=== PATIENT | male | born 1960 | race Caucasian/White ===

== ENCOUNTER → 2021-03-13 | Outpatient (CLI) | payer OTHER ==
[~2021-03-13] MED LIST: CENTRUM SILVER1 EAC2 PO; Flonase 0.05% N16 GM; Monodox100 MG PO
[2021-03-13 17:55] LABS: BASOPHILS ABSOLUTE AUTO 0.02 K/mm3 (0.00-0.23); BASOPHILS PERCENT AUTO 1 % (0-2); EOSINOPHILS PERCENT AUTO 0 % (0-6); Hematocrit 44.5 % (37.0-53.0); Hemoglobin 15.6 g/dL (13.5-17.5); IMMATURE GRAN ABSOLUTE AUTO 0.01 K/mm3 (0.00-0.10); IMMATURE GRAN PERCENT AUTO 0 % (0-1); LYMPHOCYTES ABSOLUTE AUTO 0.95 K/mm3 (0.84-5.20); LYMPHOCYTES PERCENT AUTO 23 % (21-46); MONOCYTES ABSOLUTE AUTO 0.17 K/mm3 (0.16-1.47); MONOCYTES PERCENT AUTO 4 % (4-13); Mean Corpuscular HGB 31.3 pg (26.0-34.0); Mean Corpuscular HGB Conc 35.1 g/dL (31.5-36.5); Mean Corpuscular Volume 89 fL (80-100); Mean Platelet Volume 9.8 fL (9.1-12.4); NEUTROPHILS ABSOLUTE AUTO 3.01 K/mm3 (1.96-9.15); NEUTROPHILS PERCENT AUTO 72 % (41-73); Platelet Count 115 K/mm3 (150-400); RDW Coefficient Variation 12.1 % (11.7-14.2); RDW Standard Deviation 39.5 fL (35.1-46.3); Red Blood Cell Count 4.99 M/mm3 (4.30-5.90); White Blood Cell Count 4.16 K/mm3 (4.00-11.30)
[2021-03-13 18:05] LABS: Albumin, Blood 3.5 g/dL (3.4-5.0); Albumin/Globulin Ratio 0.9 (0.8-1.8); Bilirubin, Total 0.4 mg/dL (0.1-1.0); Bun/Creatinine Ratio 15.2 (12.0-20.0); Calcium, Blood 7.6 mg/dL (8.5-10.1); Creatinine, Blood 1.64 mg/dL (0.60-1.20); Potassium, Blood 4.6 mmol/L (3.5-5.5); Total Protein, Blood 7.5 g/dL (6.4-8.2)
== END | disposition home or self-care (01) ==
LOC: LAB 17:49 → LAB SHORT 17:49
PROVIDERS: Family Medicine
DX: E86.0 Dehydration (principal)
CPT/HCPCS: 80053; 85025; 85379

== ENCOUNTER → 2021-03-14 | Outpatient (CLI) | payer OTHER ==
[2021-03-14 11:20] LABS: Albumin, Blood 3.2 g/dL (3.4-5.0); Albumin/Globulin Ratio 0.8 (0.8-1.8); Bilirubin, Total 0.4 mg/dL (0.1-1.0); Bun/Creatinine Ratio 23.5 (12.0-20.0); Calcium, Blood 7.8 mg/dL (8.5-10.1); Creatinine, Blood 1.53 mg/dL (0.60-1.20); Potassium, Blood 4.8 mmol/L (3.5-5.5); Total Protein, Blood 7.2 g/dL (6.4-8.2)
== END | disposition home or self-care (01) ==
LOC: LAB SHORT 11:05
PROVIDERS: Physician Assistant
DX: U07.1 COVID-19 (principal); J12.82 Pneumonia due to coronavirus disease 2019
CPT/HCPCS: 80053; 85379

== ENCOUNTER → 2021-03-15 | Outpatient (CLI) | payer OTHER ==
[2021-03-15 11:31] LABS: Albumin/Globulin Ratio 0.8 (0.8-1.8); Bilirubin, Total 0.3 mg/dL (0.1-1.0); Bun/Creatinine Ratio 25.4 (12.0-20.0); Calcium, Blood 7.8 mg/dL (8.5-10.1); Creatinine, Blood 1.34 mg/dL (0.60-1.20); Globulin, Blood 3.6 g/dL (2.2-4.0); Potassium, Blood 4.8 mmol/L (3.5-5.5); Total Protein, Blood 6.6 g/dL (6.4-8.2)
== END | disposition home or self-care (01) ==
LOC: LAB 11:15 → LAB SHORT 11:15
PROVIDERS: Family Medicine
DX: R09.02 Hypoxemia (principal)
CPT/HCPCS: 80053

== ENCOUNTER 2021-03-16 19:04 | Inpatient (IN) | payer OTHER ==
[~2021-03-16] VITALS: Ht 177.8 cm; Wt 96.7 kg
[~2021-03-16 19:04] MED LIST changes: -CENTRUM SILVER1 EAC2 PO
[2021-03-16] MEDS ORDERED: CENTRUM SILVER1 EAC2 PO (19:14)
[2021-03-16 19:32] LABS: BASOPHILS ABSOLUTE AUTO 0.01 K/mm3 (0.00-0.23); BASOPHILS PERCENT AUTO 0 % (0-2); EOSINOPHILS PERCENT AUTO 0 % (0-6); Hematocrit 42.3 % (37.0-53.0); IMMATURE GRAN ABSOLUTE AUTO 0.04 K/mm3 (0.00-0.10); IMMATURE GRAN PERCENT AUTO 1 % (0-1); LYMPHOCYTES ABSOLUTE AUTO 0.49 K/mm3 (0.84-5.20); LYMPHOCYTES PERCENT AUTO 8 % (21-46); MONOCYTES ABSOLUTE AUTO 0.19 K/mm3 (0.16-1.47); MONOCYTES PERCENT AUTO 3 % (4-13); Mean Corpuscular HGB 30.8 pg (26.0-34.0); Mean Corpuscular HGB Conc 35.5 g/dL (31.5-36.5); Mean Corpuscular Volume 87 fL (80-100); Mean Platelet Volume 9.8 fL (9.1-12.4); NEUTROPHILS ABSOLUTE AUTO 5.79 K/mm3 (1.96-9.15); NEUTROPHILS PERCENT AUTO 89 % (41-73); Platelet Count 167 K/mm3 (150-400); RDW Coefficient Variation 11.7 % (11.7-14.2); RDW Standard Deviation 37.5 fL (35.1-46.3); Red Blood Cell Count 4.87 M/mm3 (4.30-5.90); White Blood Cell Count 6.52 K/mm3 (4.00-11.30)
[2021-03-16 19:46] LABS: Alanine Aminotransfer (ALT/SGP 31 U/L (12-78); Albumin, Blood 2.5 g/dL (3.4-5.0); Albumin/Globulin Ratio 0.6 (0.8-1.8); Alk Phos 68 U/L (50-136); Anion Gap 7 mmol/L (6-16); Aspartate Aminotrans (AST/SGOT 74 U/L (12-37); Bilirubin, Total 0.5 mg/dL (0.1-1.0); Blood Urea Nitrogen 26 mg/dL (8-24); Bun/Creatinine Ratio 29.3 (12.0-20.0); CO2, Blood 22 mmol/L (21-32); Calcium, Blood 8.6 mg/dL (8.5-10.1); Chloride, Blood 107 mmol/L (98-108); Creatinine, Blood 0.89 mg/dL (0.60-1.20); Globulin, Blood 4.2 g/dL (2.2-4.0); Glomerular Filtration Rate >60 (60-); Glucose, Blood 191 mg/dL (70-99); Potassium, Blood 4.1 mmol/L (3.5-5.5); Sodium, Blood 136 mmol/L (136-145); Total Protein, Blood 6.7 g/dL (6.4-8.2); Troponin I <0.015 ng/mL (0.000-0.040)
[2021-03-16 20:27] LABS: SARS-Cov-2 (COVID-19) PCR, MMC POSITIVE (NEGATIVE)
[2021-03-17 04:26] LABS: BASOPHILS ABSOLUTE AUTO 0.01 K/mm3 (0.00-0.23); BASOPHILS PERCENT AUTO 0 % (0-2); EOSINOPHILS PERCENT AUTO 0 % (0-6); Hematocrit 40.2 % (37.0-53.0); Hemoglobin 14.3 g/dL (13.5-17.5); Mean Corpuscular HGB 31.4 pg (26.0-34.0); Mean Corpuscular HGB Conc 35.6 g/dL (31.5-36.5); Mean Corpuscular Volume 88 fL (80-100); Mean Platelet Volume 9.7 fL (9.1-12.4); Platelet Count 144 K/mm3 (150-400); RDW Coefficient Variation 11.8 % (11.7-14.2); RDW Standard Deviation 38.1 fL (35.1-46.3); Red Blood Cell Count 4.55 M/mm3 (4.30-5.90); White Blood Cell Count 4.98 K/mm3 (4.00-11.30)
[2021-03-17 04:27] LABS: IMMATURE GRAN ABSOLUTE AUTO 0.02 K/mm3 (0.00-0.10); IMMATURE GRAN PERCENT AUTO 0 % (0-1); LYMPHOCYTES ABSOLUTE AUTO 0.44 K/mm3 (0.84-5.20); LYMPHOCYTES PERCENT AUTO 9 % (21-46); MONOCYTES ABSOLUTE AUTO 0.14 K/mm3 (0.16-1.47); MONOCYTES PERCENT AUTO 3 % (4-13); NEUTROPHILS ABSOLUTE AUTO 4.37 K/mm3 (1.96-9.15); NEUTROPHILS PERCENT AUTO 88 % (41-73)
[2021-03-17 04:46] LABS: Alanine Aminotransfer (ALT/SGP 33 U/L (12-78); Albumin, Blood 2.3 g/dL (3.4-5.0); Albumin/Globulin Ratio 0.6 (0.8-1.8); Alk Phos 66 U/L (50-136); Anion Gap 4 mmol/L (6-16); Aspartate Aminotrans (AST/SGOT 65 U/L (12-37); Bilirubin, Total 0.5 mg/dL (0.1-1.0); Blood Urea Nitrogen 27 mg/dL (8-24); Bun/Creatinine Ratio 30.8 (12.0-20.0); CO2, Blood 27 mmol/L (21-32); Calcium, Blood 8.2 mg/dL (8.5-10.1); Chloride, Blood 106 mmol/L (98-108); Creatinine, Blood 0.88 mg/dL (0.60-1.20); Glomerular Filtration Rate >60 (60-); Glucose, Blood 219 mg/dL (70-99); Potassium, Blood 4.3 mmol/L (3.5-5.5); Sodium, Blood 137 mmol/L (136-145); Total Protein, Blood 6.3 g/dL (6.4-8.2)
--- NOTE | 2021-03-17 06:40 | NUR ---
SHIFT SUMMARY PT ARRIVED TO THE FLOOR FROM THE ER, ABLE TO SELF TRANSFER TO BED BUT WAS A BIT UNSTEADY SO HE WAS ASKED TO CALL IF HE NEEDED TO GET UP. 10L OXYMIZER WHICH WAS BUMPED UP TO 12 L NON REBREATHER WHILE ASLEEP DUE TO SATS DROPPING TO 83% AND UNABLE TO GET BACK OVER 88% WHEN ON 15L OXYMIZER, PT ALSO NOTED TO BREATH MORE SHALLOW WHILE SLEEPING. MAY BE ABLE TO GO BACK ON OXYMIZER WHILE AWAKE. ADMISSION COMPLETED, NO MEDICAL HISTORY TO NOTE, TELE IN PLACE AND IS NSR c INTERMITTENT BBB. SBA TO BSC D/T O2 REQUIREMENTS NOT REACHING BATHROOM. NO ACUTE EVENTS THIS SHIFT. CALL LIGHT IN REACH, WILL CTM AND REPORT TO DAY RN.
--- NOTE | 2021-03-17 11:38 | NUR ---
PT TO CT AT THIS TIME. REMAINS ON 15L NON REBREATHER.
--- NOTE | 2021-03-17 14:44 | NUR ---
POSITIONING: PT PLACED PRONE. WILL MONITOR TO SEE IF TOLERATES. REMAINS ON 15L NRB. CONT NON PRODUCTIVE COUGH.
--- NOTE | 2021-03-17 18:01 | NUR ---
PT HAS BEEN STABLE THIS SHIFT. PT PLACED ON AIRVO THIS AFTERNOON, 55/92%. SOB AND DESATURATING WITH ACTIVITY. PT KELSEY PRONE POSITION WELL THIS AFTERNOON. NEGATIVE CT OF CHEST FOR PE. PT USING BSC. LIQUID DIARRHEA. POOR APPETITE. NO NAUSEA. NO FEVER. PT USES CALL LIGHT APPROPRIATELY NEEDED.
--- NOTE | 2021-03-17 20:30 | NUR ---
ASSUMED CARE PT IS ALERT AND ORIENTED X 4. DENIES CHEST PAIN AND DENIES GENERAL PAIN. VITAL SIGNS ARE STABLE AND IS ON AIRVO 55L 92% FIO2 WITH SATS ABOVE 92%. PT IS ABLE TO USE BSC WITH ASSISTANCE. CALL LIGHT IS WITHIN REACH. WILL CONTINUE TO MONITOR.
--- NOTE | 2021-03-18 06:31 | NUR ---
SHIFT SUMMARY PT IS ALERT AND ORIENTED X4, VERY PLEASANT. THERE HAVE BEEN NO ACUTE CHANGES T/O THE NIGHT. PT VITALS ARE STABLE AND IS ON AIRVO 55L 94%FIO2 WITH SATS ABOVE 92%. PT DENIES CHEST PAIN OR GENERAL PAIN. PT HAS BEEN ABLE TO USE BSC WITH SBA. CALL LIGHT IS WITHIN REACH.
--- NOTE | 2021-03-18 17:38 | NUR ---
SHIFT SUMMARY PT A&OX4, VSS/NO TEMP, TELE S W/BBB @ 81 BPM, AIRVO 55L/96%, SOB/DESATS WITH ACTIVITY. DENIES CP/PRESSURE. STAND PIVOT TO BSC/CHAIR; UP TO CHAIR. KELSEY PO, DENIES N&V. VOID WITH LIQUID BM X2 TODAY. IV RAC/SL. WILL REPORT TO NEXT RN.
[2021-03-19 03:55] LABS: Hematocrit 38.6 % (37.0-53.0); Hemoglobin 13.5 g/dL (13.5-17.5); Mean Corpuscular HGB 30.8 pg (26.0-34.0); Mean Corpuscular Volume 88 fL (80-100); Mean Platelet Volume 9.8 fL (9.1-12.4); Platelet Count 240 K/mm3 (150-400); RDW Coefficient Variation 11.8 % (11.7-14.2); RDW Standard Deviation 38.3 fL (35.1-46.3); Red Blood Cell Count 4.39 M/mm3 (4.30-5.90)
[2021-03-19 04:13] LABS: Albumin, Blood 2.2 g/dL (3.4-5.0); Anion Gap 7 mmol/L (6-16); Blood Urea Nitrogen 29 mg/dL (8-24); Bun/Creatinine Ratio 33.4 (12.0-20.0); CO2, Blood 23 mmol/L (21-32); Calcium, Blood 8.2 mg/dL (8.5-10.1); Chloride, Blood 108 mmol/L (98-108); Creatinine, Blood 0.87 mg/dL (0.60-1.20); Glomerular Filtration Rate >60 (60-); Glucose, Blood 238 mg/dL (70-99); Magnesium, Blood 2.3 mg/dL (1.6-2.4); Phosphorus, Blood 3.2 mg/dL (2.5-4.9); Potassium, Blood 3.8 mmol/L (3.5-5.5); Sodium, Blood 138 mmol/L (136-145)
[2021-03-19 05:39] LABS: BAND PERCENT MAN 1 % (0-8); BASOPHILS PERCENT MAN 0 % (0-2); EOSINOPHILS PERCENT MAN 0 % (0-6); LYMPHOCYTES PERCENT MAN 12 % (21-46); MONOCYTES ABSOLUTE MAN 0.11 K/mm3 (0.16-1.47); MONOCYTES PERCENT MAN 2 % (4-13); NEUTROPHILS ABSOLUTE MAN 5.07 K/mm3 (1.96-9.15); SEG NEUTROPHILS PERCENT MAN 85 % (41-73); TOTAL CELLS COUNTED 100
--- NOTE | 2021-03-19 06:06 | NUR ---
SHIFT SUMMARY A/OX4, SBA TO BSC. LUNGS DIM T/O, COARSE TO BILATERAL BASES. CURRENTLY ON AIRVO 55L FIO2 90% WITH SATS MAINTAINING 92. DRY, HACKING COUGH NOTED. DESATS WITH EXERTION. TELE SR WITH BBB IN THE 70S-80S. VSS, NO ACUTE CHANGES AT THIS TIME. BED IN LOWEST POSITION WITH CALL LIGHT IN REACH. WILL CONTINUE TO MONITOR AND REPORT TO ONCOMING RN.
--- NOTE | 2021-03-19 09:52 | NUR ---
DR VALENZUELA IN TO SEE PT.
--- NOTE | 2021-03-19 13:18 | NUR ---
REPORT GIVEN AND CARE TURNED OVER TO WILLIAM QUINTERO.
--- NOTE | 2021-03-19 14:19 | NUR ---
ASSUMPTION OF CARE: ASSUMED CARE OF PATIENT AT 1319. I AGREE WITH PREVIOUS NURSES' EVALUATION. WILL CONINUE TO MONITOR
--- NOTE | 2021-03-19 18:03 | NUR ---
END OF SHIFT SUMMARY: AIRVO: 55L AT 79% HAS BEEN SPO2 GREATER THAN 92%, ONLY DESATURATION WITH COUGHING FITS, HAD ONE THIS MORNING, BUT NONE THE REST OF THE DAY. ENCOURAGED TO PRONE TONIGHT. COUGH, WITH SOME MILD SOB WHEN COUGHING WELL. LOOS STOOL. SR WITH BBB DENIES CHEST PAIN. DR. BROOKS WAS HOSPITALIST. [phone]. BROTHER IS ON MED FLOOR. HE HAS BEEN INDEPENDENT IN THE ROOM.
[2021-03-20 04:13] LABS: BASOPHILS ABSOLUTE AUTO 0.01 K/mm3 (0.00-0.23); BASOPHILS PERCENT AUTO 0 % (0-2); EOSINOPHILS ABSOLUTE AUTO 0.01 K/mm3 (0.00-0.68); EOSINOPHILS PERCENT AUTO 0 % (0-6); Hematocrit 37.7 % (37.0-53.0); Hemoglobin 13.4 g/dL (13.5-17.5); IMMATURE GRAN ABSOLUTE AUTO 0.08 K/mm3 (0.00-0.10); IMMATURE GRAN PERCENT AUTO 1 % (0-1); LYMPHOCYTES PERCENT AUTO 6 % (21-46); MONOCYTES ABSOLUTE AUTO 0.14 K/mm3 (0.16-1.47); MONOCYTES PERCENT AUTO 2 % (4-13); Mean Corpuscular HGB 31.2 pg (26.0-34.0); Mean Corpuscular HGB Conc 35.5 g/dL (31.5-36.5); Mean Corpuscular Volume 88 fL (80-100); Mean Platelet Volume 9.9 fL (9.1-12.4); NEUTROPHILS ABSOLUTE AUTO 5.81 K/mm3 (1.96-9.15); NEUTROPHILS PERCENT AUTO 90 % (41-73); Platelet Count 238 K/mm3 (150-400); RDW Coefficient Variation 11.8 % (11.7-14.2); RDW Standard Deviation 37.9 fL (35.1-46.3); Red Blood Cell Count 4.29 M/mm3 (4.30-5.90); White Blood Cell Count 6.45 K/mm3 (4.00-11.30)
[2021-03-20 04:32] LABS: Albumin, Blood 2.2 g/dL (3.4-5.0); Anion Gap 7 mmol/L (6-16); Blood Urea Nitrogen 29 mg/dL (8-24); Bun/Creatinine Ratio 31.9 (12.0-20.0); CO2, Blood 22 mmol/L (21-32); Calcium, Blood 8.1 mg/dL (8.5-10.1); Chloride, Blood 108 mmol/L (98-108); Creatinine, Blood 0.91 mg/dL (0.60-1.20); Glomerular Filtration Rate >60 (60-); Glucose, Blood 227 mg/dL (70-99); Magnesium, Blood 2.1 mg/dL (1.6-2.4); Phosphorus, Blood 3.1 mg/dL (2.5-4.9); Potassium, Blood 4.2 mmol/L (3.5-5.5); Sodium, Blood 137 mmol/L (136-145)
--- NOTE | 2021-03-20 06:47 | NUR ---
SHIFT SUMMARY PATIENT IS RESTING COMFORTABLY IN BED. BED IS IN LOW POSITION. PATIENT IS CURRENTLY PRONING AND SATURATING VERY WELL ABOVE 95%. HE IS CURRENTLY ON THE AIRVO 50L AT 70% FIO2 SATURATING >90% WHEN ON HIS BACK. VITALS ARE STABLE. NO ACUTE CHANGES DURING HE NIGHT. NO COMPLAINS OF PAIN. WILL CONTINUE TO MONIOR. REPORT GIVEN TO DAY SHIFT RN. PATIENT IS DOING WELL INDEPENDENTLY ABLE TO WALK TO BEDSIDE COMMODE.
--- NOTE | 2021-03-20 07:56 | NUR ---
Collin of Care Pt is awake and oriented x 4. He was proning when entering the room but is now sitting up on the side of the bed to prep for breakfast. AM care was done and he is taking sips of water. He remains on the AIRVO with sats in the high 90's. He does have a dry cough and reports that his lungs hurt when he coughs. He is able to make his needs known and has his call light and cell phone in reach.
--- NOTE | 2021-03-20 11:49 | NUR ---
Per chart review with Dr. Stark, pt will be staying and no d/c plan. ([id number], 11:49 AM)
--- NOTE | 2021-03-20 13:11 | NUR ---
Summary of Care Pt is a/o x 4. He does report that it is painful when he coughs but it resolves when the coughs subsides. He remains on the AIRVO @ 50 LPM with sats in the high 90's. He proned this morning and then sat up for breakfast and his sats have been maintaining with him sitting up in bed. He now has a neck pillow in hopes that he will be more comfortable to prone. He is able to use the BSC with SBA and line management. His sister was updated this morning. The pt is able to make his needs known and calls for help as needed.
--- NOTE | 2021-03-20 14:30 | NUR ---
ASSUMED CARE PT ALERT AND ORIENTED. O2 SATS REMAIN ABOVE 90% ON AIRVO AT 50L AND 70% FIO2. LS CLEAR, BUT DIM THROUGHOUT. PT HAS PERSISTANT DRY COUGH. BP STABLE. HR SR BBB AT 80'S. PT COMPLAINS OF GI UPSET AND TUMS PROVIDED. PLAN TO GET PT UP TO THE RECLINER BEFORE DINNER. WILL CONTINUE TO MONITOR CLOSELY.
--- NOTE | 2021-03-20 17:17 | NUR ---
UPDATE PT ABLE TO AMBULATE WITH MINIMAL ASSITANCE TO THE RECLINER. PT DESATED TO THE MID 80'S, BUT RECOVERED QUICKLY. PT DENIES ANY PAIN. NO NEW CHANGES SINCE INITIAL ASSESSMENT. WILL CONTINUE TO MONITOR AND REPORT TO ONCOMING RN.
[2021-03-21 04:21] LABS: BASOPHILS ABSOLUTE AUTO 0.01 K/mm3 (0.00-0.23); BASOPHILS PERCENT AUTO 0 % (0-2); EOSINOPHILS ABSOLUTE AUTO 0.03 K/mm3 (0.00-0.68); EOSINOPHILS PERCENT AUTO 0 % (0-6); Hematocrit 37.8 % (37.0-53.0); Hemoglobin 13.6 g/dL (13.5-17.5); IMMATURE GRAN PERCENT AUTO 3 % (0-1); LYMPHOCYTES PERCENT AUTO 5 % (21-46); MONOCYTES ABSOLUTE AUTO 0.18 K/mm3 (0.16-1.47); MONOCYTES PERCENT AUTO 2 % (4-13); Mean Corpuscular Volume 86 fL (80-100); Mean Platelet Volume 9.7 fL (9.1-12.4); NEUTROPHILS ABSOLUTE AUTO 7.21 K/mm3 (1.96-9.15); NEUTROPHILS PERCENT AUTO 90 % (41-73); Platelet Count 205 K/mm3 (150-400); RDW Coefficient Variation 11.6 % (11.7-14.2); RDW Standard Deviation 36.7 fL (35.1-46.3); Red Blood Cell Count 4.39 M/mm3 (4.30-5.90); White Blood Cell Count 8.03 K/mm3 (4.00-11.30)
[2021-03-21 04:41] LABS: Albumin, Blood 2.1 g/dL (3.4-5.0); Anion Gap 7 mmol/L (6-16); Blood Urea Nitrogen 29 mg/dL (8-24); Bun/Creatinine Ratio 32.7 (12.0-20.0); CO2, Blood 23 mmol/L (21-32); Calcium, Blood 7.9 mg/dL (8.5-10.1); Chloride, Blood 105 mmol/L (98-108); Creatinine, Blood 0.89 mg/dL (0.60-1.20); Glomerular Filtration Rate >60 (60-); Glucose, Blood 222 mg/dL (70-99); Magnesium, Blood 2.1 mg/dL (1.6-2.4); Phosphorus, Blood 3.4 mg/dL (2.5-4.9); Potassium, Blood 4.2 mmol/L (3.5-5.5); Sodium, Blood 135 mmol/L (136-145)
--- NOTE | 2021-03-21 05:25 | NUR ---
SHIFT SUMMARY PATIENT IS RESTING COMFORTABLY IN BED. BED IS IN LOW POSITION. CALL LIGHT IS IN REACH. PATIENT IS CURRENTLY PRONING NOW, HE HAS BEEN SELF PRONING AT INTERVALS DURING THE NIGHT. PATIENT IS CURRENTLY ON AIRVO AT 45L 55% FIO2 SATURATING ABOVE 90%. NO ACUTE CHANGES DURING THE NIGHT. THE PATIENT SEEMS TO BE IMPORVING AND DOING WELL. PATIENT IS ABLE TO INDEPENDENTLY MOVE AROUND IN HIS ROOM FROM THE BED TO THE BEDSIDE COMMODE. WILL CONTINUE TO MONITOR. REPORT WILL BE GIVEN TO ONCOMING DAY SHIFT NURSE.
--- NOTE | 2021-03-21 07:50 | NUR ---
CARE ASSUMPTION PATIENT A/OX4. SPO2 >90% ON AIRVO 50L 70%. PATIENT DESATS INTO 80S WITH MOVEMENT BUT RECOVERYS QUICKLY BACL INTO 90S. PATIENT REPORTS NO CHEST PAIN, PAIN, OR SOB. CALL LIGHT WITHIN REACH PATIENT IS PRONING. WILL CONTINUE TO MONITOR AND PROVIDE CARE.
--- NOTE | 2021-03-21 10:28 | NUR ---
Introduction: PT refered by nursing staff. Assessment: PT presented seated in his chair, pleasant demeanor and listening to Voodoo synagogue music. PT began to tell me how close to he was two days ago, due to covid pneumonia. PT became emotional when speaking of God's mercies shown to him during that time. I asked PT how he feels now spiritually and PT replied,"Grateful, with a purpose. I need to beging focusing on my family." (In particular a niece, whom is in his care.) Intervention: PT offered a devotional reading and prayer. Outcome: PT received devotional reading and prayer. Follow-Up: As needed or requested.
--- NOTE | 2021-03-21 10:52 | NUR ---
Per chart review with Dr. Stark, pt will be staying and no d/c plan. ([id number], 10:52 AM)
--- NOTE | 2021-03-21 17:13 | NUR ---
SHIFT SUMMARY PATIENT A/O X4. VSS. SPO2 >90% ON HF NC 15L. PATIENT DESATS WITH EXCERTION TO MID 80S, BUT RECOVERS QUICKLY BACK INTO 90S. TELE SINUS @85 WITH BBB. INDEPENDT IN ROOM. NO ACUTE CHANGES THIS SHIFT. CALL LIGHT WITHIN REACH. WILL CONTINUE TO MONITOR AND PROVIDE CARE UNTIL HAND OFF.
[2021-03-22 03:50] LABS: BASOPHILS ABSOLUTE AUTO 0.01 K/mm3 (0.00-0.23); BASOPHILS PERCENT AUTO 0 % (0-2); EOSINOPHILS ABSOLUTE AUTO 0.06 K/mm3 (0.00-0.68); EOSINOPHILS PERCENT AUTO 1 % (0-6); Hematocrit 38.9 % (37.0-53.0); Hemoglobin 13.9 g/dL (13.5-17.5); IMMATURE GRAN ABSOLUTE AUTO 0.14 K/mm3 (0.00-0.10); IMMATURE GRAN PERCENT AUTO 2 % (0-1); LYMPHOCYTES ABSOLUTE AUTO 0.34 K/mm3 (0.84-5.20); LYMPHOCYTES PERCENT AUTO 4 % (21-46); MONOCYTES ABSOLUTE AUTO 0.13 K/mm3 (0.16-1.47); MONOCYTES PERCENT AUTO 2 % (4-13); Mean Corpuscular HGB 30.8 pg (26.0-34.0); Mean Corpuscular HGB Conc 35.7 g/dL (31.5-36.5); Mean Corpuscular Volume 86 fL (80-100); Mean Platelet Volume 9.7 fL (9.1-12.4); NEUTROPHILS ABSOLUTE AUTO 7.84 K/mm3 (1.96-9.15); NEUTROPHILS PERCENT AUTO 92 % (41-73); Platelet Count 145 K/mm3 (150-400); RDW Coefficient Variation 11.5 % (11.7-14.2); RDW Standard Deviation 36.3 fL (35.1-46.3); Red Blood Cell Count 4.51 M/mm3 (4.30-5.90); White Blood Cell Count 8.52 K/mm3 (4.00-11.30)
[2021-03-22 04:09] LABS: Albumin, Blood 2.1 g/dL (3.4-5.0); Anion Gap 5 mmol/L (6-16); Blood Urea Nitrogen 29 mg/dL (8-24); Bun/Creatinine Ratio 32.1 (12.0-20.0); CO2, Blood 25 mmol/L (21-32); Calcium, Blood 8.1 mg/dL (8.5-10.1); Chloride, Blood 103 mmol/L (98-108); Glomerular Filtration Rate >60 (60-); Glucose, Blood 210 mg/dL (70-99); Magnesium, Blood 2.2 mg/dL (1.6-2.4); Phosphorus, Blood 3.4 mg/dL (2.5-4.9); Potassium, Blood 4.2 mmol/L (3.5-5.5); Sodium, Blood 133 mmol/L (136-145)
--- NOTE | 2021-03-22 06:47 | NUR ---
SHIFT SUMMARY NO ACUTE CHANGES THIS SHIFT. PT A&OX4. INDEPENDENT IN ROOM. SP02>90% ON 15L HIFLO. PT DESATS W/ ANY MOVEMENT. ALSO SATS HIGH 80'S WHEN LYING ON BACK. PT ENCOURAGED TO LAY ON SIDE/PRONE. TELEMETRY READS NSR W/ BBB, HR 60'S-80'S. PT UP TO BSC TO HAVE ONE BM. USED URINAL MULTIPLE TIMES. SLEPT MOST OF NIGHT. CALL LGIHT IN REACH. WILL GIVE REPORT TO ONCOMING NURSE.
--- NOTE | 2021-03-22 08:06 | NUR ---
CARE ASSUMPTION PATIENT A/O X4. VSS. SPO2 >90% ON BIPAP 45L 38%. TELE SR BBB. PATIENT REPORTS NO CHEST PAIN, PAIN, OR SOB. PATIENT IS UP IN CHAIR EATING BREAKFAST. LUNG SOUNDS DIM BUT CLEAR. PATIENT IS INDEPENDENT IN ROOM. CALL LIGHT WITHIN REACH. WILL CONTINUE TO MONITOR AND PROVIDE CARE.
--- NOTE | 2021-03-22 17:52 | NUR ---
SHIFT SUMMARY PATIENT A/OX4. VSS. SPO2 >90% ON AIRVO 45L 70%. TELE SR BBB @85. NO PAIN, CHEST PAIN OR SOB. PATIENT DID AN INDEPENDENT CHAIR BATH IN ROOM. PATIENT DID NOT DESAT DURING EXCRETION. NO ACUTE CHANGES. CALL LIGHT WITHIN REACH. WILL CONTINUE TO MONITOR AND PROVIDE CARE UNTIL HAND OFF WITH NEXT SHIFT.
[2021-03-23 04:25] LABS: BASOPHILS ABSOLUTE AUTO 0.01 K/mm3 (0.00-0.23); BASOPHILS PERCENT AUTO 0 % (0-2); EOSINOPHILS ABSOLUTE AUTO 0.04 K/mm3 (0.00-0.68); EOSINOPHILS PERCENT AUTO 1 % (0-6); Hematocrit 38.8 % (37.0-53.0); IMMATURE GRAN ABSOLUTE AUTO 0.14 K/mm3 (0.00-0.10); IMMATURE GRAN PERCENT AUTO 2 % (0-1); LYMPHOCYTES ABSOLUTE AUTO 0.37 K/mm3 (0.84-5.20); LYMPHOCYTES PERCENT AUTO 5 % (21-46); MONOCYTES ABSOLUTE AUTO 0.13 K/mm3 (0.16-1.47); MONOCYTES PERCENT AUTO 2 % (4-13); Mean Corpuscular HGB 31.5 pg (26.0-34.0); Mean Corpuscular HGB Conc 36.1 g/dL (31.5-36.5); Mean Corpuscular Volume 87 fL (80-100); NEUTROPHILS ABSOLUTE AUTO 7.35 K/mm3 (1.96-9.15); NEUTROPHILS PERCENT AUTO 92 % (41-73); Platelet Count 162 K/mm3 (150-400); RDW Coefficient Variation 11.6 % (11.7-14.2); Red Blood Cell Count 4.44 M/mm3 (4.30-5.90); White Blood Cell Count 8.04 K/mm3 (4.00-11.30)
[2021-03-23 05:07] LABS: Anion Gap 7 mmol/L (6-16); Blood Urea Nitrogen 32 mg/dL (8-24); Bun/Creatinine Ratio 32.8 (12.0-20.0); CO2, Blood 24 mmol/L (21-32); Calcium, Blood 8.3 mg/dL (8.5-10.1); Chloride, Blood 103 mmol/L (98-108); Creatinine, Blood 0.98 mg/dL (0.60-1.20); Glomerular Filtration Rate >60 (60-); Glucose, Blood 251 mg/dL (70-99); Magnesium, Blood 2.1 mg/dL (1.6-2.4); Phosphorus, Blood 3.9 mg/dL (2.5-4.9); Potassium, Blood 4.8 mmol/L (3.5-5.5); Sodium, Blood 134 mmol/L (136-145)
--- NOTE | 2021-03-23 05:28 | NUR ---
SHIFT SUMMARY NO ACUTE CHANGES THIS SHIFT. VITAL SIGNS STABLE. PT A+OX4. PT HAS BEEN ON AIRVO 45L 60% FIO2 MAINTAINING SATS OVER 94%. PT HAS BEEN ALTERNATING BETWEEN PRONING AND SLEPEING ON SIDE. PT HAS BEEN INDEPENDENT TO BEDSIDE COMMODE. PT DENIES PAIN OR DISOCMFORT. OCCASIONAL PRODUCTIVE COUGH MANAGED PER EMAR. PT LEFT IN BED RESTING WITH CALL ALARM AT SIDE. WILL CONTINUE TO MONITOR UNTIL REPORT GIVEN TO DAYSHIFT RN
--- NOTE | 2021-03-23 09:53 | NUR ---
Introduction: PT refered by Spiritual Care Team. Assessment: PT presented seated upright in chair, actively shaving. PT relayed that he had a "setback", which he described as, "They set me on a standard oxygen set up, but my lungs couldn't keep up, so I had to go back on the high flow, which was discouraging." I asked how he was after that setback. PT replied, by showing me a picture of his niece whom he says encourages him when he's down. We talked about strategies PT might use, when discouraged in the future, such as; prayer, pictures of home, sermons and talking with family. Intervention: PT offered prayer and help indentifying encouragement strategies. Outcome: PT received prayer and strategies. Follow-Up: As needed or requested.
--- NOTE | 2021-03-23 11:35 | NUR ---
ADMIT: 03/16/21 DISCHARGE: DX: COVID CC: [email or web address] BENI CALL: RESIDENCE: home EMERGENCY CONTACT: ALECIA MONTGOMERY (OTHER) DX: COVID-19, HTN DME: O2 CCM: none HOME HEALTH: none SUMMARY: Admit: 03/19/21 03/23/21- per chart review with Dr. Richter, pt is on 13L's O2 on Airvo. No plan for d/c at this time. -bernie
--- NOTE | 2021-03-23 17:21 | NUR ---
PT HAS BEEN INDEPENDANT IN THE ROOM T/O THE DAY UP TO BSC AND CHAIR AND BACK TO BED, HE IS ABLE TO PRONE SELF WITHOUT DIFFICULTY. PT A/O X4, ANSWERS QUESTIONS IN FULL SENTENCES. PT REPORTS IMPROVEMENT OF BREATHING. VSS. THERE ARE NO ACUTE CHANGES FOR PT THIS SHIFT
--- NOTE | 2021-03-24 06:16 | NUR ---
SHIFT SUMMARY PT A/OX4. ALERT, ORIENTATED AND PLEASENT AT BEDSIDE. APPROPRIATE WITH STAFF. ON TELE NSR 70'S-80'S TO NSB WHEN SLEEPING 45'S- 60'S. GOOD PO INTAKE. HAD A BM, PUTTY/LOOSE. HAS AN OCCASIONAL PRODUCTIVE COUGH, AND HAD SORE THROAT; GAVE MEDS PER EMAR ORDERS. CONT. USING URINAL; INSTRUCTED TO LET US MEASURE OUTPUT, YELLOW URINE. ON AIRVO AT 52L 35% FIO2; O2 ABOVE 92%. SELF PRONES. NO ACUTE CHANGES. WILL CONT. WITH PLAN OF CARE. BED IN LOWEST POSITION AND CALL LIGHT W/I REACH.
--- NOTE | 2021-03-24 11:46 | NUR ---
PT REMOVED FROM AIRVO PLACED ON HIGH FLOW NASAL CANNULA AT 10L AT 0900 THIS AM WHICH PT IS TOLERATING WELL. PT WAS ABLE TO GET UP TO SHOWER WITH AIDE. PT HAS SINCE BEEN TITRATED TO 4L HIGH FLOW NASAL CANNULA WITH SPO2 GREATER THAN 94%
--- NOTE | 2021-03-24 15:37 | NUR ---
PT HAS BEEN MADE MEDICAL STATUS WITH TELE PT IS NOW TOLERATING NC AT 4L WITH SPO2% GREATER THAN 93%
--- NOTE | 2021-03-24 16:57 | NUR ---
SBAR REPORT FROM REECE PIPELINE CONTROLLER
--- NOTE | 2021-03-24 17:09 | NUR ---
Report called to medical floor RN who will assume PT care. All belongings with PT upon transfer. No IV drips infusing at time of transfer.
--- NOTE | 2021-03-25 06:47 | NUR ---
PATIENTALERT AND RESPONSIVE. DENIES PAIN OR ANY DISTRESS. PATIENT DENIES SOB, PATIENT DENIES NAUSEA. NO ACUTE EVENT VOICED. WILL CONTINUE TO MONITOR AND ENCOURAGE.
[2021-03-25] MEDS ORDERED: PRED20 PO (15:01)
[2021-03-25] MEDS ORDERED: XARELTO20 MG PO (15:02)
== END 2021-03-25 15:42 | disposition home or self-care (01) | DRG 177 ==
LOC: ER 19:04 → PCU 22:26 → SURS 22:26 → PCU 03-23 14:59 → MEDS 03-24 17:13
PROVIDERS: Family Medicine; Student in an Organized Health Care Education/Training Program; ADMIT Internal Medicine
PROC: 8E0ZXY6 Isolation (ICD-10-PCS; principal; 2021-03-16)
PROC: 3E0333Z Introduction of Anti-inflammatory into Peripheral Vein, Percutaneous Approach (ICD-10-PCS; 2021-03-16)
PROC: XW033E5 Introduction of Remdesivir Anti-infective into Peripheral Vein, Percutaneous Approach, New Technology Group 5 (ICD-10-PCS; 2021-03-16)
PROC: 5A0955A Assistance with Respiratory Ventilation, Greater than 96 Consecutive Hours, High Flow/Velocity Cannula (ICD-10-PCS; 2021-03-18)
DX: U07.1 COVID-19 (principal); J12.82 Pneumonia due to coronavirus disease 2019; J96.01 Acute respiratory failure with hypoxia; E66.9 Obesity, unspecified; Z68.32 Body mass index [BMI] 32.0-32.9, adult; Z79.899 Other long term (current) drug therapy; Z88.0 Allergy status to penicillin
CPT/HCPCS: 36415; 71045; 71260; 80053; 80069; 82947; 83735; 84484; 85025; 93005; 93010; 94640; 94762; 96374; 99285-25; A9270; J1100; J1650; J1815; Q9967; U0004

== ENCOUNTER → 2021-03-16 | Outpatient (CLI) | payer OTHER ==
[2021-03-16 18:49] LABS: BASOPHILS PERCENT AUTO 0 % (0-2); EOSINOPHILS PERCENT AUTO 0 % (0-6); Hematocrit 43.3 % (37.0-53.0); Hemoglobin 15.7 g/dL (13.5-17.5); IMMATURE GRAN ABSOLUTE AUTO 0.02 K/mm3 (0.00-0.10); IMMATURE GRAN PERCENT AUTO 0 % (0-1); LYMPHOCYTES ABSOLUTE AUTO 0.51 K/mm3 (0.84-5.20); LYMPHOCYTES PERCENT AUTO 8 % (21-46); MONOCYTES PERCENT AUTO 3 % (4-13); Mean Corpuscular HGB 31.5 pg (26.0-34.0); Mean Corpuscular HGB Conc 36.3 g/dL (31.5-36.5); Mean Corpuscular Volume 87 fL (80-100); Mean Platelet Volume 9.7 fL (9.1-12.4); NEUTROPHILS ABSOLUTE AUTO 5.78 K/mm3 (1.96-9.15); NEUTROPHILS PERCENT AUTO 89 % (41-73); Platelet Count 174 K/mm3 (150-400); RDW Standard Deviation 38.2 fL (35.1-46.3); Red Blood Cell Count 4.98 M/mm3 (4.30-5.90); White Blood Cell Count 6.51 K/mm3 (4.00-11.30)
[2021-03-16 19:08] LABS: Alanine Aminotransfer (ALT/SGP 34 U/L (12-78); Albumin, Blood 2.9 g/dL (3.4-5.0); Albumin/Globulin Ratio 0.7 (0.8-1.8); Alk Phos 75 U/L (40-126); Anion Gap 11 mmol/L (6-16); Aspartate Aminotrans (AST/SGOT 69 U/L (12-37); Bilirubin, Total 0.6 mg/dL (0.1-1.0); Blood Urea Nitrogen 26 mg/dL (8-24); Bun/Creatinine Ratio 23.2 (12.0-20.0); CO2, Blood 26 mmol/L (21-32); Calcium, Blood 8.6 mg/dL (8.5-10.1); Chloride, Blood 102 mmol/L (98-108); Creatinine, Blood 1.12 mg/dL (0.60-1.20); Globulin, Blood 4.2 g/dL (2.2-4.0); Glomerular Filtration Rate >60 (60-); Glucose, Blood 192 mg/dL (70-99); Potassium, Blood 4.3 mmol/L (3.5-5.5); Sodium, Blood 139 mmol/L (136-145); Total Protein, Blood 7.1 g/dL (6.4-8.2); Troponin I <0.017 ng/mL (0.000-0.040)
== END | disposition home or self-care (01) ==
LOC: LAB SHORT 18:44 → LAB 18:44
PROVIDERS: Physician Assistant Surgical
DX: R09.02 Hypoxemia (principal); R06.00 Dyspnea, unspecified; R50.9 Fever, unspecified
CPT/HCPCS: 80053; 83880; 84484; 85025; 85379

== ENCOUNTER 2021-06-29 08:40 | Day surgery (SDC) | payer OTHER ==
[~2021-06-29] VITALS: Ht 177.8 cm; Wt 104.3 kg
[~2021-06-29 08:40] MED LIST changes: +ASPI325 PO; +CENTRUM SILVER1 EAC2 PO; +LIPITOR80 MG PO; +PRED20 PO; +TOPROL XL25 MG PO; +XARELTO20 MG PO
--- NOTE | 2021-06-29 10:37 | NUR ---
PATIENT RETURNED FROM THE [facility] WITH TR BAND IN PLACE TO THE RIGHT RADIAL. 18 ML OF AIR IN THE TR BAND. PATIENT CONNECTED TO THE MONITOR. CALL LIGHT IN REACH. NO PAIN NOTED. NO BLEEDING FROM THE RIGHT RADIAL SITE. WHITE BOARD IN PLACE. COFFEE SERVED.
--- NOTE | 2021-06-29 12:13 | NUR ---
BEGAND REMOVING AIR FROM THE TR BAND. PATIENT FINISHED WITH LUNCH TRAY. IV FLUIDS REMOVED. 450 ML INFUSED AND CHARTED.
--- NOTE | 2021-06-29 12:31 | NUR ---
CONTINUE TO REMOVED AIR FROM THE TR BAND, NO BLEEDIN NOTED. NO HEMATOMA NOTED.
--- NOTE | 2021-06-29 13:27 | NUR ---
TR BAND OFF AND SITE CLEANED. CLOTH DOT PLACED TO THE RIGHT RADIAL PUNCTURE SITE. NO BLEEDING. NO HEMATOMA. REVIEWED DISCHARGE INSTRUCTIONS, SIGNATURES OBTAINED AND COPIES GIVEN. PATIENT'S PIV REMOVED ADN PRESUSRE DRESSING APPLIED. PAITENT IS UP AND DRESSING SELF. RETAINED ALL BELONGINGS. DISCHARGED HOME AMBULATORY TO [facility] TO MEET OVEN PRESS TENDER.
== END 2021-06-29 13:41 | disposition home or self-care (01) ==
LOC: MHTC 08:40
DX: I25.10 Atherosclerotic heart disease of native coronary artery without angina pectoris (principal); I44.7 Left bundle-branch block, unspecified; E78.5 Hyperlipidemia, unspecified; E66.9 Obesity, unspecified; I42.9 Cardiomyopathy, unspecified; I50.9 Heart failure, unspecified; Z88.0 Allergy status to penicillin; Z79.82 Long term (current) use of aspirin; Z68.32 Body mass index [BMI] 32.0-32.9, adult
CPT/HCPCS: 76937; 93454; 99152; 99153; C1769; C1887; C1894; J1644; J2250; J3010; J7030; Q9967

== ENCOUNTER → 2024-06-20 | Outpatient (CLI) | payer OTHER ==
[2024-06-22 08:07] LABS: Stool Occult Bld Immuno 1 Negative (NEGATIVE)
== END ==
LOC: LAB SHORT 18:30 → LAB 18:30
PROVIDERS: Physician Assistant
DX: Z12.11 Encounter for screening for malignant neoplasm of colon (principal)
CPT/HCPCS: G0328